=== PATIENT | male | born 1945 | race African-American/Black ===

== ENCOUNTER 2017-04-01 19:36 | Inpatient (IN) | payer MEDICARE, MEDICAID ==
[~2017-04-01] VITALS: Ht 190.5 cm; Wt 86.2 kg
[~2017-04-01 19:36] MED LIST: ATOR10TA69 PO; DILT180C69 PO; EYE15DRO EACHEYE; FURO-151 PO; GLIP10TA10 PO; NOVOLOG MIX 70/30 SQ; PREG150C PO
[2017-04-01 20:25] LABS: BASOPHILS % 0.7 % (0.0-2.0); EOSINOPHILS % 10.8 % (0.0-5.0); HEMOGLOBIN. 7.8 g/dL (14.0-18.0); LYMPHOCYTES % 15.5 % (20.0-50.0); MEAN CORPUSCULAR HEMOGLOBIN 18.8 pg (28.0-32.0); MEAN CORPUSCULAR VOLUME 62.7 fL (80.0-94.0); MONOCYTES % 7.5 % (2.0-8.0); NEUTROPHILS % 65.5 % (40.0-76.0); PLATELET 287 x1000/uL (130-400); RED BLOOD CELL COUNT 4.15 mill/uL (4.7-6.1); RED CELL DISTRIBUTION WIDTH 22.1 % (11.6-14.6)
[2017-04-01 20:31] LABS: INR 1.1; PARTIAL THROMBOPLASTIN TIME 29.4 sec (23.4-31.0); PROTHROMBIN TIME 11.1 sec (9.4-11.6)
[2017-04-01 20:39] LABS: CARBON DIOXIDE 26 mEq/L (21-32); CHLORIDE 103 mEq/L (98-107); PHOSPHORUS 2.2 mg/dL (2.5-4.9)
[2017-04-01 20:41] LABS: TROPONIN I 0.04 ng/mL (0.00-0.04)
[2017-04-01 20:43] LABS: PLATELET ESTIMATE NORMAL
[2017-04-01] MEDS ORDERED: MAGNESIUM 1 G PREMIX 100 ML IV ONE (20:45)
[2017-04-01] MEDS ORDERED: ZOLPIDEM TARTRATE 5MG TABLET PO PRN (21:00)
[2017-04-01 21:22] LABS: TOTAL IRON BINDING CAPACITY 345 ug/dL (250-450)
[2017-04-01] MEDS ORDERED: IPRATROPIUM/ALBUTEROL 0.5-3(2.5)MG/3ML NEB HHN PRN (23:45)
[2017-04-01] MEDS ORDERED: ONDANSETRON HCL 4MG/2ML VIAL IV PRN (23:45)
[2017-04-01] MEDS ORDERED: ACETAMINOPHEN 650MG/20.3ML UDC GT PRN (23:45)
[2017-04-01] MEDS ORDERED: DEXTROSE 50% WATER 50ML SYRINGE IV PRN (23:45)
[2017-04-02] VITALS (12 sets, daily range): BP systolic 134–169; BP diastolic 58–91
[2017-04-02] MEDS ORDERED: METF500T4 PO (01:32)
[2017-04-02] MEDS ORDERED: CLOP75TA16 PO (01:32)
[2017-04-02] MEDS ORDERED: DOCU250C69 PO (01:32)
[2017-04-02] MEDS ORDERED: DILT180C69 PO (01:32)
[2017-04-02] MEDS ORDERED: LIP40 PO (01:32)
[2017-04-02] MEDS ORDERED: INSU100I7 SQ (01:32)
[2017-04-02] MEDS ORDERED: CHOL100044 PO (01:32)
[2017-04-02] MEDS ORDERED: ASPI-1159 PO (01:32)
[2017-04-02] MEDS: CLONIDINE 0.1MG TABLET PO PRN ×2 (02:34→09:20)
[2017-04-02] MEDS: FERROUS SULFATE 325MG TABLET PO SCH ×3 (06:50→17:23)
[2017-04-02] MEDS: BLOOD SUGAR DIAGNOSTIC STRIP TEST SCH ×4 (06:50→20:28)
[2017-04-02] MEDS: OMEPRAZOLE 20MG CAPSULE EXTENDED RELEASE PO SCH (06:50)
[2017-04-02] MEDS: INSULIN LISPRO 100 UNITS/ML SUBCUT SCH ×4 (06:57→20:51)
[2017-04-02 07:43] LABS: BASOPHILS % 0.7 % (0.0-2.0); EOSINOPHILS % 13.1 % (0.0-5.0); HEMATOCRIT. 23.9 % (42.0-52.0); HEMOGLOBIN. 7.3 g/dL (14.0-18.0); LYMPHOCYTES % 18.3 % (20.0-50.0); MEAN CORPUSCULAR VOLUME 62.4 fL (80.0-94.0); MEAN PLATELET VOLUME 9.6 fl (7.4-10.4); MONOCYTES % 8.7 % (2.0-8.0); NEUTROPHILS % 59.2 % (40.0-76.0); PLATELET 247 x1000/uL (130-400); RED BLOOD CELL COUNT 3.82 mill/uL (4.7-6.1); RED CELL DISTRIBUTION WIDTH 21.9 % (11.6-14.6)
[2017-04-02 09:03] LABS: CARBON DIOXIDE 26 mEq/L (21-32); CHLORIDE 105 mEq/L (98-107)
[2017-04-02] MEDS: LOSARTAN POTASSIUM 25 MG TABLET PO SCH (10:46)
[2017-04-02] MEDS: DILTIAZEM HCL 180MG CAPSULE CD 24HR PO SCH (10:46)
[2017-04-02] MEDS: DOCUSATE SODIUM 250MG CAPSULE PO SCH (10:47)
[2017-04-02] MEDS: FUROSEMIDE 40MG TABLET PO SCH (10:47)
[2017-04-02] MEDS: CHOLECALCIFEROL (D3) 1000 UNIT TABLET PO SCH (10:47)
[2017-04-02] MEDS ORDERED: POTASSIUM-SODIUM PHOSPHATE POWDER PACKET PO NR (12:00)
[2017-04-02] MEDS ORDERED: MAGNESIUM 1 G PREMIX 100 ML IV NR (12:00)
[2017-04-02] MEDS ORDERED: FERROUS SULFATE 325MG TABLET PO SCH (12:40)
[2017-04-02 14:36] LABS: HEMATOCRIT 29.8 % (42.0-52.0); HEMOGLOBIN 9.1 g/dL (14.0-18.0)
[2017-04-02] MEDS ORDERED: MAGNESIUM 2 G PREMIX 50 ML IV SCH (15:00)
[2017-04-02] MEDS: METFORMIN HCL 500MG TABLET PO SCH (17:23)
[2017-04-02] MEDS: ATORVASTATIN CALCIUM 10MG TABLET PO SCH (20:28)
[2017-04-02] MEDS: PANTOPRAZOLE SODIUM 40 MG/VIAL IV SCH (20:28)
[2017-04-02] MEDS ORDERED: ATORVASTATIN CALCIUM 40MG TABLET PO SCH (21:00)
[2017-04-03] VITALS: BP 129/64
[2017-04-03 05:42] LABS: INR 1.1; PARTIAL THROMBOPLASTIN TIME 29.7 sec (23.4-31.0); PROTHROMBIN TIME 11.1 sec (9.4-11.6)
[2017-04-03 06:13] LABS: BASOPHILS % 0.5 % (0.0-2.0); EOSINOPHILS % 12.3 % (0.0-5.0); HEMATOCRIT. 29.8 % (42.0-52.0); HEMOGLOBIN. 9.1 g/dL (14.0-18.0); LYMPHOCYTES % 18.1 % (20.0-50.0); MEAN CORPUSCULAR HEMOGLOBIN 19.8 pg (28.0-32.0); MEAN CORPUSCULAR VOLUME 64.8 fL (80.0-94.0); MEAN PLATELET VOLUME 10.1 fl (7.4-10.4); MONOCYTES % 7.6 % (2.0-8.0); NEUTROPHILS % 61.5 % (40.0-76.0); PLATELET 248 x1000/uL (130-400); RED BLOOD CELL COUNT 4.61 mill/uL (4.7-6.1); RED CELL DISTRIBUTION WIDTH 23.4 % (11.6-14.6)
[2017-04-03 06:14] LABS: CARBON DIOXIDE 28 mEq/L (21-32); CHLORIDE 103 mEq/L (98-107); LDL CHOLESTEROL 82 mg/dL (5-100)
[2017-04-03 06:23] LABS: HDL CHOLESTEROL 33 mg/dL (40-59); TROPONIN I 0.05 ng/mL (0.00-0.04)
[2017-04-03] MEDS: BLOOD SUGAR DIAGNOSTIC STRIP TEST SCH ×4 (06:25→20:46)
[2017-04-03] MEDS: OMEPRAZOLE 20MG CAPSULE EXTENDED RELEASE PO SCH (06:26)
[2017-04-03] MEDS: GLIPIZIDE 10MG TABLET PO SCH (06:26)
[2017-04-03] MEDS: METFORMIN HCL 500MG TABLET PO SCH ×2 (06:26→17:20)
[2017-04-03] MEDS: FERROUS SULFATE 325MG TABLET PO SCH ×3 (06:27→17:20)
[2017-04-03] MEDS: INSULIN LISPRO 100 UNITS/ML SUBCUT SCH ×4 (06:27→23:09)
[2017-04-03 08:00] VITALS: BP 171/69
[2017-04-03] MEDS: DOCUSATE SODIUM 250MG CAPSULE PO SCH (08:41)
[2017-04-03] MEDS: PANTOPRAZOLE SODIUM 40 MG/VIAL IV SCH ×2 (08:41→20:46)
[2017-04-03] MEDS: FUROSEMIDE 40MG TABLET PO SCH (08:42)
[2017-04-03] MEDS: CHOLECALCIFEROL (D3) 1000 UNIT TABLET PO SCH (08:42)
[2017-04-03] MEDS: DILTIAZEM HCL 180MG CAPSULE CD 24HR PO SCH (08:51)
[2017-04-03] MEDS: LOSARTAN POTASSIUM 25 MG TABLET PO SCH (08:51)
[2017-04-03] MEDS: CLONIDINE 0.1MG TABLET PO PRN (08:51)
[2017-04-03] MEDS ORDERED: SIMETHICONE 40 MG/0.6 ML 30ML ONE (10:56)
[2017-04-03] MEDS ORDERED: SODIUM CHLORIDE 0.9% 10ML VIAL ONE (10:56)
[2017-04-03] MEDS ORDERED: HYDRALAZINE 20MG/ML VIAL IV PRN (11:15)
[2017-04-03 12:00] VITALS: BP 153/59
[2017-04-03] MEDS ORDERED: MIDAZOLAM HCL 5 MG/5 ML VIAL ONE (15:07)
[2017-04-03] MEDS ORDERED: FENTANYL CITRATE/PF 50MCG/ML 2ML VIAL ONE (15:07)
[2017-04-03 20:00] VITALS: BP 112/61
[2017-04-03] MEDS: ATORVASTATIN CALCIUM 10MG TABLET PO SCH (20:46)
[2017-04-04] VITALS: BP 125/58
[2017-04-04 04:00] VITALS: BP 119/67
[2017-04-04] MEDS: FERROUS SULFATE 325MG TABLET PO SCH ×2 (06:36→11:48)
[2017-04-04] MEDS: METFORMIN HCL 500MG TABLET PO SCH (06:36)
[2017-04-04] MEDS: OMEPRAZOLE 20MG CAPSULE EXTENDED RELEASE PO SCH (06:36)
[2017-04-04] MEDS: GLIPIZIDE 10MG TABLET PO SCH (06:36)
[2017-04-04] MEDS: BLOOD SUGAR DIAGNOSTIC STRIP TEST SCH ×2 (06:40→11:47)
[2017-04-04] MEDS: INSULIN LISPRO 100 UNITS/ML SUBCUT SCH ×2 (06:40→11:49)
[2017-04-04 07:18] LABS: BASOPHILS % 0.5 % (0.0-2.0); EOSINOPHILS % 10.6 % (0.0-5.0); HEMATOCRIT. 29.4 % (42.0-52.0); HEMOGLOBIN. 8.9 g/dL (14.0-18.0); LYMPHOCYTES % 16.8 % (20.0-50.0); MEAN CORPUSCULAR HEMOGLOBIN 19.8 pg (28.0-32.0); MEAN CORPUSCULAR VOLUME 65.6 fL (80.0-94.0); MEAN PLATELET VOLUME 9.4 fl (7.4-10.4); MONOCYTES % 7.8 % (2.0-8.0); NEUTROPHILS % 64.3 % (40.0-76.0); PLATELET 239 x1000/uL (130-400); RED BLOOD CELL COUNT 4.49 mill/uL (4.7-6.1); RED CELL DISTRIBUTION WIDTH 23.4 % (11.6-14.6)
[2017-04-04 08:00] VITALS: BP 181/66
[2017-04-04] MEDS: DOCUSATE SODIUM 250MG CAPSULE PO SCH (08:25)
[2017-04-04] MEDS: LOSARTAN POTASSIUM 25 MG TABLET PO SCH (08:25)
[2017-04-04] MEDS: DILTIAZEM HCL 180MG CAPSULE CD 24HR PO SCH (08:25)
[2017-04-04] MEDS: CHOLECALCIFEROL (D3) 1000 UNIT TABLET PO SCH (08:26)
[2017-04-04] MEDS: FUROSEMIDE 40MG TABLET PO SCH (08:26)
[2017-04-04] MEDS: PANTOPRAZOLE SODIUM 40 MG/VIAL IV SCH (08:28)
[2017-04-04 12:00] VITALS: BP 159/66
[2017-04-04 13:11] VITALS: BP 159/66
[2017-04-04 16:00] VITALS: BP 166/65
== END 2017-04-04 16:24 | DRG 392 ==
LOC: ER 20:31 → 8WST 21:00 → ENRESERV 23:02
PROVIDERS: ADMIT Family Medicine Adult Medicine; ATTEND Family Medicine Adult Medicine
PROC: 30233N1 Transfusion of Nonautologous Red Blood Cells into Peripheral Vein, Percutaneous Approach (ICD-10-PCS; 2017-04-02)
PROC: 0DB68ZX Excision of Stomach, Via Natural or Artificial Opening Endoscopic, Diagnostic (ICD-10-PCS; principal; 2017-04-03 15:00)
DX: K29.00 Acute gastritis without bleeding (principal); E44.0 Moderate protein-calorie malnutrition; I13.10 Hypertensive heart and chronic kidney disease without heart failure, with stage 1 through stage 4 chronic kidney disease, or unspecified chronic kidney disease; E11.22 Type 2 diabetes mellitus with diabetic chronic kidney disease; E83.42 Hypomagnesemia; D50.9 Iron deficiency anemia, unspecified; I65.21 Occlusion and stenosis of right carotid artery; N18.9 Chronic kidney disease, unspecified; E78.00 Pure hypercholesterolemia, unspecified; Z68.23 Body mass index [BMI] 23.0-23.9, adult; K44.9 Diaphragmatic hernia without obstruction or gangrene; E78.5 Hyperlipidemia, unspecified; K29.60 Other gastritis without bleeding; Z88.0 Allergy status to penicillin; Z88.8 Allergy status to other drugs, medicaments and biological substances; I25.2 Old myocardial infarction; Z79.82 Long term (current) use of aspirin; Z79.02 Long term (current) use of antithrombotics/antiplatelets; Z86.73 Personal history of transient ischemic attack (TIA), and cerebral infarction without residual deficits
CPT/HCPCS: 36415; 71010; 80048; 80053; 80061; 82962; 83540; 83550; 83735; 84100; 84443; 84484; 85014; 85018; 85025; 85044; 85610; 85730; 86850; 86900; 86920; 88305; 88313; 93005; 93970; 96365; 99285; A4216; C9113; J1815; J2250; J3010; J3475; J7040; J7050; P9016

== ENCOUNTER 2017-04-25 15:44 | Inpatient (IN) | payer MEDICARE, MEDICAID ==
[~2017-04-25] VITALS: Ht 190.5 cm; Wt 88.5 kg
[~2017-04-25 15:44] MED LIST changes: +ASPI-1159 PO; +CHOL100044 PO; +CLOP75TA16 PO; +DOCU250C69 PO; +INSU100I7 SQ; +LIP40 PO; +METF500T4 PO
[2017-04-25 17:41] LABS: BASOPHILS % 0.7 % (0.0-2.0); EOSINOPHILS % 11.4 % (0.0-5.0); HEMOGLOBIN. 7.7 g/dL (14.0-18.0); LYMPHOCYTES % 12.8 % (20.0-50.0); MEAN CORPUSCULAR HEMOGLOBIN 19.6 pg (28.0-32.0); MEAN CORPUSCULAR VOLUME 64.2 fL (80.0-94.0); NEUTROPHILS % 68.1 % (40.0-76.0); PLATELET 410 x1000/uL (130-400); RED CELL DISTRIBUTION WIDTH 21.6 % (11.6-14.6)
[2017-04-25 17:49] LABS: INR 1.1; PROTHROMBIN TIME 11.4 sec (9.4-11.6)
[2017-04-25 17:50] LABS: CARBON DIOXIDE 27 mEq/L (21-32); CHLORIDE 102 mEq/L (98-107)
[2017-04-25 18:03] LABS: PLATELET ESTIMATE SLIGHTLY INCREASED
[2017-04-25 19:10] LABS: CLARITY URINE CLEAR (CLEAR); COLOR URINE YELLOW (YELLOW); GLUCOSE URINE NEGATIVE (NEGATIVE); KETONES URINE NEGATIVE (NEGATIVE); LEUKOCYTE ESTERASE URINE NEGATIVE (NEGATIVE); NITRITE URINE NEGATIVE (NEGATIVE); OCCULT BLOOD URINE NEGATIVE (NEGATIVE); PROTEIN URINE NEGATIVE (NEGATIVE); SPECIFIC GRAVITY URINE 1.013 (1.005-1.030); UROBILINOGEN URINE 0.2 E.U./dL (0.2-1.0)
[2017-04-25 23:52] VITALS: BP 163/63
[2017-04-26] VITALS (10 sets, daily range): BP systolic 97–165; BP diastolic 51–82
[2017-04-26] MEDS ORDERED: LOSARTAN POTASSIUM 50 MG TABLET PO SCH (00:30)
[2017-04-26] MEDS ORDERED: DEXTROSE 50% WATER 50ML SYRINGE IV PRN (00:30)
[2017-04-26] MEDS ORDERED: ACETAMINOPHEN 325MG TABLET PO PRN (00:30)
[2017-04-26] MEDS ORDERED: SODIUM CHLORIDE 0.9% 250 ML IV ONE (00:30)
[2017-04-26] MEDS: POLYVINYL ALCOHOL OPHTH DROPS 15ML BOTHEYE SCH ×3 (05:42→17:34)
[2017-04-26] MEDS: BLOOD SUGAR DIAGNOSTIC STRIP TEST SCH ×4 (06:21→20:34)
[2017-04-26] MEDS: INSULIN LISPRO 100 UNITS/ML SUBCUT SCH ×4 (06:49→20:59)
[2017-04-26 07:04] LABS: BASOPHILS % 0.6 % (0.0-2.0); EOSINOPHILS % 9.7 % (0.0-5.0); HEMATOCRIT. 25.4 % (42.0-52.0); HEMOGLOBIN. 7.9 g/dL (14.0-18.0); LYMPHOCYTES % 14.6 % (20.0-50.0); MEAN CORPUSCULAR HEMOGLOBIN 20.1 pg (28.0-32.0); MEAN CORPUSCULAR VOLUME 65.1 fL (80.0-94.0); MEAN PLATELET VOLUME 9.9 fl (7.4-10.4); MONOCYTES % 8.8 % (2.0-8.0); NEUTROPHILS % 66.3 % (40.0-76.0); PLATELET 374 x1000/uL (130-400); RED BLOOD CELL COUNT 3.91 mill/uL (4.7-6.1); RED CELL DISTRIBUTION WIDTH 22.9 % (11.6-14.6)
[2017-04-26 08:03] LABS: CARBON DIOXIDE 29 mEq/L (21-32); CHLORIDE 102 mEq/L (98-107); TOTAL IRON BINDING CAPACITY 335 ug/dL (250-450)
[2017-04-26] MEDS: DILTIAZEM HCL 120MG CAPSULE CD 24HR PO SCH (08:41)
[2017-04-26] MEDS: LOSARTAN POTASSIUM 50 MG TABLET PO SCH (08:48)
[2017-04-26] MEDS: PREGABALIN 75MG CAPSULE PO SCH ×2 (08:48→17:00)
[2017-04-26] MEDS: ATORVASTATIN CALCIUM 10MG TABLET PO SCH (20:58)
[2017-04-26] MEDS ORDERED: SORBITOL 70% SOLN 30ML PO NR (21:00)
[2017-04-26] MEDS ORDERED: ATORVASTATIN CALCIUM 10MG TABLET PO SCH (21:00)
[2017-04-27] VITALS: BP 105/59
[2017-04-27 04:00] VITALS: BP 125/78
[2017-04-27] MEDS: BLOOD SUGAR DIAGNOSTIC STRIP TEST SCH ×4 (05:55→21:00)
[2017-04-27] MEDS ORDERED: SORBITOL 70% SOLN 30ML PO NR ×2 (06:00→10:00)
[2017-04-27] MEDS: POLYVINYL ALCOHOL OPHTH DROPS 15ML BOTHEYE SCH ×5 (06:28→23:39)
[2017-04-27] MEDS: INSULIN LISPRO 100 UNITS/ML SUBCUT SCH ×4 (07:13→22:07)
[2017-04-27 08:00] VITALS: BP 105/57
[2017-04-27] MEDS ORDERED: NA PHOS,M-B/NA PHOS,DI-BA ENEMA 118ML PR ONE (08:00)
[2017-04-27] MEDS ORDERED: NA PHOS,M-B/NA PHOS,DI-BA ENEMA 118ML PR NR ×2 (08:00→11:00)
[2017-04-27] MEDS: PREGABALIN 75MG CAPSULE PO SCH ×2 (08:14→16:45)
[2017-04-27] MEDS: DILTIAZEM HCL 120MG CAPSULE CD 24HR PO SCH (08:17)
[2017-04-27] MEDS: LOSARTAN POTASSIUM 50 MG TABLET PO SCH (08:18)
[2017-04-27] MEDS ORDERED: SODIUM CHLORIDE 0.9% 10ML VIAL ONE (09:46)
[2017-04-27] MEDS ORDERED: SIMETHICONE 40 MG/0.6 ML 30ML ONE (09:46)
[2017-04-27] MEDS ORDERED: MIDAZOLAM HCL 5 MG/5 ML VIAL ONE (09:55)
[2017-04-27] MEDS ORDERED: FENTANYL CITRATE/PF 50MCG/ML 2ML VIAL ONE (09:55)
[2017-04-27 12:00] VITALS: BP 113/74
[2017-04-27 16:00] VITALS: BP 116/67
[2017-04-27 20:00] VITALS: BP 121/68
[2017-04-27] MEDS: ATORVASTATIN CALCIUM 10MG TABLET PO SCH (20:32)
[2017-04-27] MEDS ORDERED: SORBITOL 70% SOLN 30ML PO SCH (21:00)
[2017-04-27] MEDS: INSULIN DETEMIR UD 100 UNITS/ML SYR SUBCUT SCH (22:08)
[2017-04-28] VITALS: BP 122/65
[2017-04-28 04:00] VITALS: BP 113/60
[2017-04-28] MEDS: POLYVINYL ALCOHOL OPHTH DROPS 15ML BOTHEYE SCH ×3 (06:25→18:43)
[2017-04-28] MEDS: BLOOD SUGAR DIAGNOSTIC STRIP TEST SCH ×4 (06:29→21:00)
[2017-04-28] MEDS: INSULIN LISPRO 100 UNITS/ML SUBCUT SCH ×4 (06:49→21:59)
[2017-04-28 07:03] LABS: HEMATOCRIT. 26.2 % (42.0-52.0); HEMOGLOBIN. 7.8 g/dL (14.0-18.0); MEAN CORPUSCULAR HEMOGLOBIN 19.3 pg (28.0-32.0); MEAN PLATELET VOLUME 9.2 fl (7.4-10.4); PLATELET 321 x1000/uL (130-400); RED BLOOD CELL COUNT 4.03 mill/uL (4.7-6.1); RED CELL DISTRIBUTION WIDTH 23.1 % (11.6-14.6)
[2017-04-28 07:27] LABS: CARBON DIOXIDE 24 mEq/L (21-32); CHLORIDE 108 mEq/L (98-107)
[2017-04-28 08:00] VITALS: BP 117/68
[2017-04-28] MEDS ORDERED: SORBITOL 70% SOLN 30ML PO SCH (08:00)
[2017-04-28] MEDS: LOSARTAN POTASSIUM 50 MG TABLET PO SCH (09:00)
[2017-04-28] MEDS: PREGABALIN 75MG CAPSULE PO SCH ×2 (09:00→18:43)
[2017-04-28] MEDS: DILTIAZEM HCL 120MG CAPSULE CD 24HR PO SCH (09:00)
[2017-04-28] MEDS: METOPROLOL TARTRATE 50MG TABLET PO SCH ×2 (11:00→21:00)
[2017-04-28] MEDS ORDERED: NA PHOS,M-B/NA PHOS,DI-BA ENEMA 118ML PR SCH (11:00)
[2017-04-28 11:38] LABS: NUCLEATED RED BLOOD CELLS 1 /100 WBC; PLATELET ESTIMATE NORMAL
[2017-04-28 12:00] VITALS: BP 106/56
[2017-04-28] MEDS ORDERED: SIMETHICONE 40 MG/0.6 ML 30ML ONE ×2 (14:32→16:05)
[2017-04-28] MEDS ORDERED: SODIUM CHLORIDE 0.9% 10ML VIAL ONE (14:32)
[2017-04-28] MEDS ORDERED: FENTANYL CITRATE/PF 50MCG/ML 2ML VIAL ONE (16:06)
[2017-04-28] MEDS ORDERED: MIDAZOLAM HCL 5 MG/5 ML VIAL ONE (16:06)
[2017-04-28] MEDS ORDERED: MIDAZOLAM HCL 2 MG/2 ML VIAL IV PRN (16:27)
[2017-04-28 20:00] VITALS: BP 105/63
[2017-04-28] MEDS: ATORVASTATIN CALCIUM 10MG TABLET PO SCH (21:49)
[2017-04-28] MEDS: INSULIN DETEMIR UD 100 UNITS/ML SYR SUBCUT SCH (21:59)
[2017-04-29] VITALS: BP 131/67
[2017-04-29] MEDS: POLYVINYL ALCOHOL OPHTH DROPS 15ML BOTHEYE SCH ×5 (00:35→23:52)
[2017-04-29 04:00] VITALS: BP_SYST 123; BP_SYST 131; BP_DIAS 61; BP_DIAS 67
[2017-04-29] MEDS: BLOOD SUGAR DIAGNOSTIC STRIP TEST SCH ×4 (06:24→21:00)
[2017-04-29] MEDS: INSULIN LISPRO 100 UNITS/ML SUBCUT SCH ×4 (06:31→22:23)
[2017-04-29 07:17] LABS: HEMATOCRIT. 25.6 % (42.0-52.0); HEMOGLOBIN. 7.8 g/dL (14.0-18.0); MEAN CORPUSCULAR HEMOGLOBIN 19.8 pg (28.0-32.0); MEAN PLATELET VOLUME 9.3 fl (7.4-10.4); PLATELET 265 x1000/uL (130-400); RED BLOOD CELL COUNT 3.94 mill/uL (4.7-6.1); RED CELL DISTRIBUTION WIDTH 23.2 % (11.6-14.6)
[2017-04-29 07:52] LABS: CARBON DIOXIDE 25 mEq/L (21-32); CHLORIDE 107 mEq/L (98-107)
[2017-04-29 08:00] VITALS: BP 131/63
[2017-04-29] MEDS: LOSARTAN POTASSIUM 50 MG TABLET PO SCH (09:10)
[2017-04-29] MEDS: METOPROLOL TARTRATE 50MG TABLET PO SCH ×2 (09:11→21:00)
[2017-04-29] MEDS: PREGABALIN 75MG CAPSULE PO SCH ×2 (09:11→17:01)
[2017-04-29] MEDS ORDERED: INSULIN DETEMIR UD 100 UNITS/ML SYR SUBCUT SCH (10:00)
[2017-04-29 11:40] VITALS: BP 127/65
[2017-04-29 15:47] VITALS: BP 134/48
[2017-04-29 16:19] LABS: PLATELET ESTIMATE NORMAL
[2017-04-29 20:00] VITALS: BP 107/56
[2017-04-29] MEDS: ATORVASTATIN CALCIUM 10MG TABLET PO SCH (21:12)
[2017-04-29] MEDS: INSULIN DETEMIR UD 100 UNITS/ML SYR SUBCUT SCH (22:24)
[2017-04-30] VITALS (11 sets, daily range): BP systolic 93–125; BP diastolic 52–63
[2017-04-30] MEDS: POLYVINYL ALCOHOL OPHTH DROPS 15ML BOTHEYE SCH ×4 (05:54→23:18)
[2017-04-30] MEDS: BLOOD SUGAR DIAGNOSTIC STRIP TEST SCH ×4 (06:16→20:10)
[2017-04-30 06:33] LABS: BASOPHILS % 0.7 % (0.0-2.0); EOSINOPHILS % 13.4 % (0.0-5.0); HEMATOCRIT. 24.4 % (42.0-52.0); HEMOGLOBIN. 7.5 g/dL (14.0-18.0); LYMPHOCYTES % 17.1 % (20.0-50.0); MEAN CORPUSCULAR HEMOGLOBIN 19.8 pg (28.0-32.0); MEAN CORPUSCULAR VOLUME 64.7 fL (80.0-94.0); MEAN PLATELET VOLUME 9.2 fl (7.4-10.4); MONOCYTES % 8.4 % (2.0-8.0); NEUTROPHILS % 60.4 % (40.0-76.0); PLATELET 254 x1000/uL (130-400); RED BLOOD CELL COUNT 3.76 mill/uL (4.7-6.1); RED CELL DISTRIBUTION WIDTH 22.7 % (11.6-14.6)
[2017-04-30] MEDS: INSULIN LISPRO 100 UNITS/ML SUBCUT SCH ×7 (06:41→21:08)
[2017-04-30] MEDS: LOSARTAN POTASSIUM 50 MG TABLET PO SCH (09:34)
[2017-04-30] MEDS: METOPROLOL TARTRATE 50MG TABLET PO SCH ×2 (09:34→20:11)
[2017-04-30] MEDS: PREGABALIN 75MG CAPSULE PO SCH ×2 (09:34→17:17)
[2017-04-30] MEDS: INSULIN DETEMIR UD 100 UNITS/ML SYR SUBCUT SCH (09:46)
[2017-04-30] MEDS: ATORVASTATIN CALCIUM 10MG TABLET PO SCH (21:03)
[2017-04-30] MEDS ORDERED: INSULIN DETEMIR UD 100 UNITS/ML SYR SUBCUT SCH (22:00)
[2017-04-30 23:07] LABS: HEMATOCRIT 27.4 % (42.0-52.0); HEMOGLOBIN 8.7 g/dL (14.0-18.0)
[2017-05-01] VITALS: BP 109/63
[2017-05-01 04:00] VITALS: BP 121/67
[2017-05-01] MEDS: BLOOD SUGAR DIAGNOSTIC STRIP TEST SCH ×2 (06:21→12:22)
[2017-05-01] MEDS: POLYVINYL ALCOHOL OPHTH DROPS 15ML BOTHEYE SCH ×2 (06:43→12:34)
[2017-05-01] MEDS: INSULIN LISPRO 100 UNITS/ML SUBCUT SCH ×4 (06:46→12:34)
[2017-05-01 07:31] VITALS: BP 124/67
[2017-05-01] MEDS: PREGABALIN 75MG CAPSULE PO SCH (08:31)
[2017-05-01] MEDS: LOSARTAN POTASSIUM 50 MG TABLET PO SCH (08:31)
[2017-05-01] MEDS: METOPROLOL TARTRATE 50MG TABLET PO SCH (08:31)
[2017-05-01 08:50] LABS: BASOPHILS % 0.9 % (0.0-2.0); EOSINOPHILS % 10.7 % (0.0-5.0); HEMATOCRIT. 31.6 % (42.0-52.0); HEMOGLOBIN. 9.8 g/dL (14.0-18.0); LYMPHOCYTES % 21.2 % (20.0-50.0); MEAN CORPUSCULAR HEMOGLOBIN 20.5 pg (28.0-32.0); MEAN CORPUSCULAR VOLUME 66.3 fL (80.0-94.0); MEAN PLATELET VOLUME 9.1 fl (7.4-10.4); MONOCYTES % 7.5 % (2.0-8.0); NEUTROPHILS % 59.7 % (40.0-76.0); PLATELET 268 x1000/uL (130-400); RED BLOOD CELL COUNT 4.76 mill/uL (4.7-6.1); RED CELL DISTRIBUTION WIDTH 23.6 % (11.6-14.6)
[2017-05-01 09:10] LABS: CARBON DIOXIDE 25 mEq/L (21-32); CHLORIDE 108 mEq/L (98-107)
[2017-05-01] MEDS: INSULIN DETEMIR UD 100 UNITS/ML SYR SUBCUT SCH (10:08)
[2017-05-01 10:12] LABS: IMMUNOGLOBULIN A 214 mg/dL (61-437); IMMUNOGLOBULIN G 1103 mg/dL (700-1600); IMMUNOGLOBULIN M 103 mg/dL (15-143)
[2017-05-01] MEDS ORDERED: CLOPIDOGREL 75MG TABLET PO SCH (11:00)
[2017-05-01] MEDS ORDERED: ASPIRIN 81MG EC TABLET PO SCH (11:00)
[2017-05-01 11:53] VITALS: BP 124/58
[2017-05-01 12:13] VITALS: BP 124/58
[2017-05-02] MEDS ORDERED: INSULIN DETEMIR UD 100 UNITS/ML SYR SUBCUT SCH (10:00)
== END 2017-05-01 13:15 | DRG 377 ==
LOC: ER 15:54 → 8WST 18:44 → ENRESERV 21:11 → 8WST 04-26 00:27
PROVIDERS: ADMIT Specialist; ATTEND Specialist
PROC: 0DJD8ZZ Inspection of Lower Intestinal Tract, Via Natural or Artificial Opening Endoscopic (ICD-10-PCS; principal; 2017-04-27 11:00)
PROC: 0DJD8ZZ Inspection of Lower Intestinal Tract, Via Natural or Artificial Opening Endoscopic (ICD-10-PCS; 2017-04-28)
DX: K57.31 Diverticulosis of large intestine without perforation or abscess with bleeding (principal); N17.0 Acute kidney failure with tubular necrosis; R65.10 Systemic inflammatory response syndrome (SIRS) of non-infectious origin without acute organ dysfunction; E11.22 Type 2 diabetes mellitus with diabetic chronic kidney disease; E11.40 Type 2 diabetes mellitus with diabetic neuropathy, unspecified; I12.9 Hypertensive chronic kidney disease with stage 1 through stage 4 chronic kidney disease, or unspecified chronic kidney disease; N18.9 Chronic kidney disease, unspecified; D50.9 Iron deficiency anemia, unspecified; I25.10 Atherosclerotic heart disease of native coronary artery without angina pectoris; K64.8 Other hemorrhoids; D72.829 Elevated white blood cell count, unspecified; E78.5 Hyperlipidemia, unspecified; Z86.73 Personal history of transient ischemic attack (TIA), and cerebral infarction without residual deficits
CPT/HCPCS: 36415; 71010; 80048; 80053; 81003; 82270; 82784; 82962; 83010; 83540; 83550; 83615; 83735; 84443; 85014; 85018; 85025; 85610; 86334; 86850; 86880; 86900; 86920; 93005; 93970; 97112; 97162; 99285; A4216; J1815; J2250; J3010; J7030; J7050; P9016

== ENCOUNTER 2018-02-08 23:25 | Inpatient (IN) | payer MEDICARE, MEDICAID ==
[~2018-02-08] VITALS: Ht 188 cm; Wt 88.9 kg
[~2018-02-08 23:25] MED LIST changes: -METF500T4 PO; +METF500T6 PO
[2018-02-08] MEDS ORDERED: NITROGLYCERIN 50MG PREMIX 250 ML IV ONE ×2 (23:36→23:37)
[2018-02-08] MEDS ORDERED: FUROSEMIDE 40MG/4ML VIAL IV ONE (23:45)
[2018-02-08 23:48] LABS: BASOPHILS % 1.1 % (0.0-2.0); EOSINOPHILS % 12.4 % (0.0-5.0); HEMATOCRIT. 37.6 % (42.0-52.0); LYMPHOCYTES % 33.7 % (20.0-50.0); MEAN CORPUSCULAR HEMOGLOBIN 18.6 pg (28.0-32.0); MEAN CORPUSCULAR VOLUME 63.8 fL (80.0-94.0); MEAN PLATELET VOLUME 9.8 fl (7.4-10.4); MONOCYTES % 8.7 % (2.0-8.0); NEUTROPHILS % 44.1 % (40.0-76.0); PLATELET 403 x1000/uL (130-400); RED CELL DISTRIBUTION WIDTH 22.2 % (11.6-14.6)
[2018-02-08 23:55] LABS: CHLORIDE 103 mEq/L (98-107)
[2018-02-08 23:58] LABS: INR 1.1; PARTIAL THROMBOPLASTIN TIME 27.1 sec (23.4-31.0)
[2018-02-09] VITALS (10 sets, daily range): BP systolic 105–140; BP diastolic 47–75
[2018-02-09] MEDS ORDERED: ASPIRIN 325MG TABLET PO NR (00:15)
[2018-02-09 00:29] LABS: CLARITY URINE CLEAR (CLEAR); COLOR URINE YELLOW (YELLOW); KETONES URINE NEGATIVE (NEGATIVE); LEUKOCYTE ESTERASE URINE NEGATIVE (NEGATIVE); NITRITE URINE NEGATIVE (NEGATIVE); OCCULT BLOOD URINE 1+ (NEGATIVE); PROTEIN URINE 3+ (NEGATIVE); SPECIFIC GRAVITY URINE 1.019 (1.005-1.030); UROBILINOGEN URINE 0.2 E.U./dL (0.2-1.0)
[2018-02-09 02:07] LABS: PLATELET ESTIMATE NORMAL
[2018-02-09] MEDS ORDERED: DILT60TA35 PO (04:49)
[2018-02-09] MEDS ORDERED: INSLIS SUBCUT (04:49)
[2018-02-09] MEDS ORDERED: PANT20TA3 PO (04:49)
[2018-02-09] MEDS ORDERED: POTA-9 PO (04:49)
[2018-02-09] MEDS ORDERED: CARV3.1242 PO (04:49)
[2018-02-09] MEDS ORDERED: FURO20TA4 PO (04:49)
[2018-02-09] MEDS ORDERED: INSU100I19 SQ (04:49)
[2018-02-09] MEDS ORDERED: BUDE0.25 IH (04:49)
[2018-02-09] MEDS ORDERED: LEVVL SQ (04:49)
[2018-02-09] MEDS ORDERED: IPRATROPIUM/ALBUTEROL 0.5-3(2.5)MG/3ML NEB HHN PRN (05:30)
[2018-02-09] MEDS ORDERED: CLONIDINE 0.1MG TABLET PO PRN (05:30)
[2018-02-09] MEDS ORDERED: DEXTROSE 50% WATER 50ML SYRINGE IV PRN (05:30)
[2018-02-09] MEDS ORDERED: ONDANSETRON 4MG ODT PO PRN (05:30)
[2018-02-09] MEDS ORDERED: INSULIN LISPRO 100 UNITS/ML SUBCUT NR (05:45)
[2018-02-09] MEDS: INSULIN LISPRO 100 UNITS/ML SUBCUT SCH ×4 (07:20→21:16)
[2018-02-09] MEDS: BLOOD SUGAR DIAGNOSTIC STRIP TEST SCH ×4 (07:39→20:51)
[2018-02-09 07:51] LABS: CHLORIDE 102 mEq/L (98-107)
[2018-02-09 08:04] LABS: BASOPHILS % 0.6 % (0.0-2.0); EOSINOPHILS % 5.6 % (0.0-5.0); HEMATOCRIT. 31.5 % (42.0-52.0); HEMOGLOBIN. 9.5 g/dL (14.0-18.0); LYMPHOCYTES % 15.5 % (20.0-50.0); MEAN CORPUSCULAR VOLUME 62.8 fL (80.0-94.0); MONOCYTES % 8.1 % (2.0-8.0); NEUTROPHILS % 70.2 % (40.0-76.0); RED BLOOD CELL COUNT 5.02 mill/uL (4.7-6.1); RED CELL DISTRIBUTION WIDTH 21.3 % (11.6-14.6)
[2018-02-09] MEDS ORDERED: LEVOFLOXACIN 500MG PREMIX 100 ML IV SCH (09:00)
[2018-02-09 09:04] LABS: MEAN PLATELET VOLUME 10.1 fl (7.4-10.4); PLATELET 227 x1000/uL (130-400)
[2018-02-09 10:07] LABS: BG BASE EXCESS 4.1 mmol/L (-2.0-2.0); BG CARBOXYHEMOGLOBIN 0.3 % (0.5-1.5); BG DEOXYHEMOGLOBIN 4.4 % (0.0-5.0); BG FRACTION INSPIRED OXYGEN 28; BG HCO3 ACT 28.1 mmol/L (22.0-26.0); BG METHEMOGLOBIN 0.4 % (0.0-1.5); BG OXYGEN SATURATION 95.6 % (92.0-98.5); BG OXYHEMOGLOBIN 94.9 % (94.0-97.0); BG PCO2 40.1 mmHg (35.0-45.0); BG PH 7.464 (7.350-7.450); BG PO2 80.4 mmHg (75.0-100.0); BG SAMPLE SITE RIGHT BRACHIAL; BG TOTAL HEMOGLOBIN 10.5 g/dL (12.0-18.0); BG VENT MODE NASAL CANNULA
[2018-02-09] MEDS ORDERED: FUROSEMIDE 40MG/4ML VIAL IVP SCH (10:30)
[2018-02-09] MEDS ORDERED: ONDANSETRON HCL 4MG/2ML VIAL IV PRN (10:30)
[2018-02-09] MEDS: LEVOFLOXACIN 500MG PREMIX 100 ML IV SCH (11:30)
[2018-02-09] MEDS: PANTOPRAZOLE SODIUM 40 MG/VIAL IV SCH (11:30)
[2018-02-09] MEDS: LOSARTAN POTASSIUM 25 MG TABLET PO SCH (14:00)
[2018-02-09] MEDS: INSULIN GLARGINE UD 100 UNITS/ML SYR SUBCUT SCH (14:03)
[2018-02-09 15:15] LABS: HEMATOCRIT 29.8 % (42.0-52.0); HEMOGLOBIN 9.1 g/dL (14.0-18.0)
[2018-02-09] MEDS: FUROSEMIDE 40MG/4ML VIAL IVP SCH (17:08)
[2018-02-09 17:16] LABS: AMMONIA 35 uMol/L (<32)
[2018-02-09 17:18] LABS: ETHANOL BLOOD < 10 mg/dL
[2018-02-09 17:24] LABS: T4 FREE 1.02 ng/dL (0.76-1.46)
[2018-02-09 17:32] LABS: FOLIC ACID (FOLATE) SERUM 17.7 ng/mL (>5.38)
[2018-02-09] MEDS: ATORVASTATIN CALCIUM 20MG TABLET PO SCH (21:15)
[2018-02-09] MEDS: CARVEDILOL 3.125 MG TABLET PO SCH (21:15)
[2018-02-09] MEDS: IPRATROPIUM/ALBUTEROL 0.5-3(2.5)MG/3ML NEB HHN SCH (21:25)
[2018-02-10] VITALS (12 sets, daily range): BP systolic 97–145; BP diastolic 46–88
[2018-02-10] MEDS: IPRATROPIUM/ALBUTEROL 0.5-3(2.5)MG/3ML NEB HHN SCH ×4 (02:05→19:57)
[2018-02-10 03:44] LABS: *AMPHETAMINES SCREEN URINE NEGATIVE (NEGATIVE); *BARBITURATES SCREEN URINE NEGATIVE (NEGATIVE); *BENZODIAZEPINES SCREEN URINE NEGATIVE (NEGATIVE); *COCAINE SCREEN URINE NEGATIVE (NEGATIVE); CANNABINOID URINE SCREEN NEGATIVE (NEGATIVE); METHADONE URINE SCREEN NEGATIVE (NEGATIVE); OPIATES URINE SCREEN NEGATIVE (NEGATIVE); PHENCYCLIDINE URINE SCREEN NEGATIVE (NEGATIVE)
[2018-02-10] MEDS: BLOOD SUGAR DIAGNOSTIC STRIP TEST SCH ×4 (06:27→22:29)
[2018-02-10] MEDS: LOSARTAN POTASSIUM 25 MG TABLET PO SCH (09:04)
[2018-02-10] MEDS: INSULIN LISPRO 100 UNITS/ML SUBCUT SCH ×4 (09:04→22:51)
[2018-02-10] MEDS: PANTOPRAZOLE SODIUM 40 MG/VIAL IV SCH (09:04)
[2018-02-10] MEDS: CARVEDILOL 3.125 MG TABLET PO SCH ×2 (09:04→22:45)
[2018-02-10] MEDS: LEVOFLOXACIN 500MG PREMIX 100 ML IV SCH (09:05)
[2018-02-10] MEDS: ASPIRIN 81MG TABLET PO SCH (09:05)
[2018-02-10] MEDS: INSULIN GLARGINE UD 100 UNITS/ML SYR SUBCUT SCH (10:07)
[2018-02-10 10:39] LABS: BASOPHILS % 0.5 % (0.0-2.0); EOSINOPHILS % 7.3 % (0.0-5.0); HEMATOCRIT. 29.7 % (42.0-52.0); HEMOGLOBIN. 9.2 g/dL (14.0-18.0); LYMPHOCYTES % 13.8 % (20.0-50.0); MEAN CORPUSCULAR HEMOGLOBIN 19.3 pg (28.0-32.0); MONOCYTES % 7.7 % (2.0-8.0); NEUTROPHILS % 70.7 % (40.0-76.0); RED CELL DISTRIBUTION WIDTH 21.4 % (11.6-14.6)
[2018-02-10 10:43] LABS: CHLORIDE 103 mEq/L (98-107)
[2018-02-10 10:49] LABS: TOTAL IRON BINDING CAPACITY 309 ug/dL (250-450)
[2018-02-10] MEDS: POTASSIUM CHLORIDE 20MEQ TABLET SR PO SCH (11:23)
[2018-02-10] MEDS: FUROSEMIDE 40MG/4ML VIAL IVP SCH ×3 (11:23→18:17)
[2018-02-10 11:43] LABS: PLATELET 207 x1000/uL (130-400)
[2018-02-10] MEDS ORDERED: MAGNESIUM 2 G PREMIX 50 ML IV NR (13:00)
[2018-02-10] MEDS: DOCUSATE SODIUM 100MG CAPSULE PO SCH (18:17)
[2018-02-10] MEDS: FERROUS SULFATE 325MG TABLET PO SCH (18:17)
[2018-02-10] MEDS: ATORVASTATIN CALCIUM 20MG TABLET PO SCH (22:45)
[2018-02-11] VITALS (13 sets, daily range): BP systolic 81–143; BP diastolic 53–90
[2018-02-11] MEDS: IPRATROPIUM/ALBUTEROL 0.5-3(2.5)MG/3ML NEB HHN SCH ×3 (01:10→20:45)
[2018-02-11] MEDS: BLOOD SUGAR DIAGNOSTIC STRIP TEST SCH ×4 (06:34→21:00)
[2018-02-11] MEDS: FUROSEMIDE 40MG/4ML VIAL IVP SCH ×2 (06:36→16:49)
[2018-02-11] MEDS: INSULIN LISPRO 100 UNITS/ML SUBCUT SCH ×4 (07:20→22:56)
[2018-02-11] MEDS: POTASSIUM CHLORIDE 20MEQ TABLET SR PO SCH (08:26)
[2018-02-11] MEDS: DOCUSATE SODIUM 100MG CAPSULE PO SCH ×2 (08:26→16:49)
[2018-02-11] MEDS: PANTOPRAZOLE SODIUM 40 MG/VIAL IV SCH (08:27)
[2018-02-11] MEDS: FERROUS SULFATE 325MG TABLET PO SCH ×3 (08:27→16:50)
[2018-02-11] MEDS: LEVOFLOXACIN 500MG PREMIX 100 ML IV SCH (08:27)
[2018-02-11] MEDS: ASPIRIN 81MG TABLET PO SCH (08:27)
[2018-02-11] MEDS: LOSARTAN POTASSIUM 25 MG TABLET PO SCH (08:30)
[2018-02-11] MEDS: CARVEDILOL 3.125 MG TABLET PO SCH ×2 (09:00→21:39)
[2018-02-11] MEDS: INSULIN GLARGINE UD 100 UNITS/ML SYR SUBCUT SCH (10:37)
[2018-02-11 12:24] LABS: BASOPHILS % 0.6 % (0.0-2.0); HEMATOCRIT. 31.3 % (42.0-52.0); HEMOGLOBIN. 9.5 g/dL (14.0-18.0); LYMPHOCYTES % 14.9 % (20.0-50.0); MEAN CORPUSCULAR HEMOGLOBIN 19.1 pg (28.0-32.0); MEAN CORPUSCULAR VOLUME 62.5 fL (80.0-94.0); MONOCYTES % 7.7 % (2.0-8.0); NEUTROPHILS % 67.8 % (40.0-76.0); RED BLOOD CELL COUNT 5.01 mill/uL (4.7-6.1); RED CELL DISTRIBUTION WIDTH 21.6 % (11.6-14.6)
[2018-02-11 13:19] LABS: PLATELET 236 x1000/uL (130-400)
[2018-02-11] MEDS: ATORVASTATIN CALCIUM 20MG TABLET PO SCH (21:39)
[2018-02-12] VITALS (8 sets, daily range): BP systolic 105–160; BP diastolic 54–81
[2018-02-12] MEDS: IPRATROPIUM/ALBUTEROL 0.5-3(2.5)MG/3ML NEB HHN SCH ×3 (01:00→13:44)
[2018-02-12] MEDS: FERROUS SULFATE 325MG TABLET PO SCH ×2 (06:11→12:31)
[2018-02-12] MEDS: FUROSEMIDE 40MG/4ML VIAL IVP SCH (06:11)
[2018-02-12] MEDS: BLOOD SUGAR DIAGNOSTIC STRIP TEST SCH ×2 (06:25→11:41)
[2018-02-12] MEDS: INSULIN LISPRO 100 UNITS/ML SUBCUT SCH ×2 (06:32→12:32)
[2018-02-12 07:46] LABS: BASOPHILS % 0.6 % (0.0-2.0); EOSINOPHILS % 11.6 % (0.0-5.0); HEMATOCRIT. 34.1 % (42.0-52.0); HEMOGLOBIN. 10.7 g/dL (14.0-18.0); LYMPHOCYTES % 14.8 % (20.0-50.0); MEAN CORPUSCULAR HEMOGLOBIN 19.6 pg (28.0-32.0); MEAN CORPUSCULAR VOLUME 62.5 fL (80.0-94.0); MONOCYTES % 8.8 % (2.0-8.0); NEUTROPHILS % 64.2 % (40.0-76.0); RED BLOOD CELL COUNT 5.46 mill/uL (4.7-6.1); RED CELL DISTRIBUTION WIDTH 21.2 % (11.6-14.6)
[2018-02-12 08:26] LABS: MEAN PLATELET VOLUME 9.3 fl (7.4-10.4); PLATELET 259 x1000/uL (130-400)
[2018-02-12] MEDS: ASPIRIN 81MG TABLET PO SCH (08:29)
[2018-02-12] MEDS: DOCUSATE SODIUM 100MG CAPSULE PO SCH (08:29)
[2018-02-12] MEDS: POTASSIUM CHLORIDE 20MEQ TABLET SR PO SCH (08:29)
[2018-02-12] MEDS: CARVEDILOL 3.125 MG TABLET PO SCH (08:29)
[2018-02-12] MEDS: LOSARTAN POTASSIUM 25 MG TABLET PO SCH (08:29)
[2018-02-12] MEDS ORDERED: FAMOTIDINE 20MG TABLET PO SCH (09:00)
[2018-02-12] MEDS ORDERED: FUROSEMIDE 40MG TABLET PO SCH (09:00)
[2018-02-12] MEDS ORDERED: LEVOFLOXACIN 500MG TABLET PO SCH (11:00)
[2018-02-12] MEDS: INSULIN GLARGINE UD 100 UNITS/ML SYR SUBCUT SCH (11:38)
[2018-02-13 13:09] LABS: ALBUMIN 3.1 g/dL (2.9-4.4); ALPHA-1-GLOBULIN 0.3 g/dL (0.0-0.4); ALPHA-2-GLOBULIN 0.6 g/dL (0.4-1.0); BETA GLOBULIN 1.1 g/dL (0.7-1.3); GAMMA GLOBULINS 1.1 g/dL (0.4-1.8); GLOBULIN TOTAL 3.1 g/dL (2.2-3.9); M-SPIKE Not Observed g/dL (Not Observed); TOTAL PROTEIN SERUM 6.2 g/dL (6.0-8.5)
[2018-02-13 17:09] LABS: ANTI-NUCLEAR ANTIBODIES DIRECT Negative (Negative)
== END 2018-02-12 13:56 | DRG 291 ==
LOC: ER 23:33 → 3WST 02-09 00:10 → EDBEDREQ 02-09 00:15 → EDBEDREQTM 02-09 00:15 → EDBEDREQDT 02-09 00:15 → EDBEDREQSVC 02-09 00:16 → ENRESERV 02-09 02:16
PROVIDERS: ADMIT Family Medicine Adult Medicine; ATTEND Family Medicine Adult Medicine
PROC: 5A09357 Assistance with Respiratory Ventilation, Less than 24 Consecutive Hours, Continuous Positive Airway Pressure (ICD-10-PCS; 2018-02-09)
PROC: 4A00X4Z Measurement of Central Nervous Electrical Activity, External Approach (ICD-10-PCS; principal; 2018-02-11)
DX: I13.0 Hypertensive heart and chronic kidney disease with heart failure and stage 1 through stage 4 chronic kidney disease, or unspecified chronic kidney disease (principal); I50.23 Acute on chronic systolic (congestive) heart failure; J96.00 Acute respiratory failure, unspecified whether with hypoxia or hypercapnia; G92 Toxic encephalopathy; E87.2 Acidosis; E44.1 Mild protein-calorie malnutrition; N17.9 Acute kidney failure, unspecified; I42.9 Cardiomyopathy, unspecified; E11.65 Type 2 diabetes mellitus with hyperglycemia; D72.829 Elevated white blood cell count, unspecified; E11.22 Type 2 diabetes mellitus with diabetic chronic kidney disease; E78.00 Pure hypercholesterolemia, unspecified; E78.5 Hyperlipidemia, unspecified; F03.90 Unspecified dementia, unspecified severity, without behavioral disturbance, psychotic disturbance, mood disturbance, and anxiety; H54.7 Unspecified visual loss; I25.10 Atherosclerotic heart disease of native coronary artery without angina pectoris; D64.9 Anemia, unspecified; I48.0 Paroxysmal atrial fibrillation; K21.9 Gastro-esophageal reflux disease without esophagitis; N18.9 Chronic kidney disease, unspecified; Z82.49 Family history of ischemic heart disease and other diseases of the circulatory system; Z83.3 Family history of diabetes mellitus; I25.2 Old myocardial infarction; Z86.73 Personal history of transient ischemic attack (TIA), and cerebral infarction without residual deficits; Z88.0 Allergy status to penicillin; Z79.4 Long term (current) use of insulin; Z79.84 Long term (current) use of oral hypoglycemic drugs; Z79.82 Long term (current) use of aspirin; Z79.899 Other long term (current) drug therapy; Z68.25 Body mass index [BMI] 25.0-25.9, adult
CPT/HCPCS: 36415; 36600; 70551; 71045; 76770; 80048; 80053; 80305; 81003; 82140; 82375; 82607; 82746; 82805; 82962; 83036; 83540; 83550; 83605; 83735; 83880; 84155; 84165; 84439; 84443; 84481; 84484; 85014; 85018; 85025; 85610; 85730; 86038; 92610; 93005; 93970; 94640; 94660; 96365; 96366; 96375; 97162; 97166; 97530; 99291; C9113; G0482; J1815; J1940; J1956; J3475; J3490; J7040; J7620; A4315

== ENCOUNTER 2018-09-15 12:47 | Inpatient (IN) | payer MEDICARE, MEDICAID ==
[~2018-09-15] VITALS: Ht 175.3 cm; Wt 86.2 kg
[~2018-09-15 12:47] MED LIST changes: +BUDE0.25 IH; +CARV3.1242 PO; +DILT180C66 PO; -DILT180C69 PO; +DILT60TA35 PO; +FURO20TA4 PO; +INSLIS SUBCUT; +INSU100I19 SQ; +LEVVL SQ; +METF-414 PO; -METF500T6 PO; +PANT20TA3 PO; +POTA-9 PO
[2018-09-15 15:33] LABS: HEMATOCRIT. 34.6 % (42.0-52.0); MEAN CORPUSCULAR HEMOGLOBIN 23.8 pg (28.0-32.0); MEAN CORPUSCULAR VOLUME 74.3 fL (80.0-94.0); MEAN PLATELET VOLUME 9.1 fl (7.4-10.4); PLATELET 492 x1000/uL (130-400); RED BLOOD CELL COUNT 4.65 mill/uL (4.7-6.1); RED CELL DISTRIBUTION WIDTH 13.8 % (11.6-14.6)
[2018-09-15 15:40] LABS: CHLORIDE 100 mEq/L (98-107)
[2018-09-15 15:42] LABS: INR 1.2; PROTHROMBIN TIME 12.3 sec (9.1-11.1)
[2018-09-15 16:15] LABS: PLATELET ESTIMATE INCREASED
[2018-09-15] MEDS ORDERED: VANCOMYCIN 1 G PREMIX 200 ML IV SCH (16:15)
[2018-09-15] MEDS ORDERED: LEVOFLOXACIN 750MG PREMIX 150 ML IV ONE (16:15)
[2018-09-15] MEDS ORDERED: CLINDAMYCIN 600MG PREMIX 50 ML IV NR (16:30)
[2018-09-15] MEDS ORDERED: DIPHENHYDRAMINE 50MG/ML VIAL IV PRN (19:15)
[2018-09-15] MEDS ORDERED: ACETAMINOPHEN 325MG TABLET PO PRN (19:15)
[2018-09-15] MEDS ORDERED: MAGNESIUM/ALUMINUM HYDROXIDE/SIMETHICONE 30ML UDC PO PRN (19:15)
[2018-09-15] MEDS ORDERED: DOCUSATE SODIUM 100MG CAPSULE PO PRN (19:15)
[2018-09-15] MEDS ORDERED: DEXTROSE 50% WATER 50ML SYRINGE IV PRN ×2 (19:15)
[2018-09-15] MEDS ORDERED: HYDROCODONE/ACETAMINOPHEN 5/325MG TABLET PO PRN (19:15)
[2018-09-15] MEDS: INSULIN LISPRO 100 UNITS/ML SUBCUT SCH (20:42)
[2018-09-15 21:26] VITALS: BP 128/74
[2018-09-15] MEDS: BLOOD SUGAR DIAGNOSTIC STRIP TEST SCH (21:30)
[2018-09-15 22:00] VITALS: BP 113/74
[2018-09-15 23:43] VITALS: BP 128/74
[2018-09-16] VITALS (13 sets, daily range): BP systolic 102–169; BP diastolic 49–87
[2018-09-16 07:06] LABS: HEMATOCRIT. 31.3 % (42.0-52.0); MEAN CORPUSCULAR HEMOGLOBIN 23.5 pg (28.0-32.0); MEAN CORPUSCULAR VOLUME 73.6 fL (80.0-94.0); MEAN PLATELET VOLUME 9.3 fl (7.4-10.4); PLATELET 484 x1000/uL (130-400); RED BLOOD CELL COUNT 4.26 mill/uL (4.7-6.1); RED CELL DISTRIBUTION WIDTH 14.2 % (11.6-14.6)
[2018-09-16] MEDS: BLOOD SUGAR DIAGNOSTIC STRIP TEST SCH ×4 (07:47→21:03)
[2018-09-16 08:01] LABS: CHLORIDE 100 mEq/L (98-107)
[2018-09-16 08:08] LABS: PHOSPHORUS 2.8 mg/dL (2.5-4.9)
[2018-09-16] MEDS: INSULIN LISPRO 100 UNITS/ML SUBCUT SCH ×4 (08:49→21:11)
[2018-09-16] MEDS ORDERED: LEVOFLOXACIN 250MG TABLET PO SCH (11:00)
[2018-09-16 11:20] LABS: PLATELET ESTIMATE SLIGHTLY INCREASED
[2018-09-16] MEDS: DILTIAZEM HCL 60MG TABLET PO SCH ×2 (12:28→18:27)
[2018-09-16] MEDS: ASPIRIN 81MG TABLET PO SCH (13:58)
[2018-09-16] MEDS: DOCUSATE SODIUM 250MG CAPSULE PO SCH (13:58)
[2018-09-16] MEDS: FUROSEMIDE 20MG TABLET PO SCH (13:58)
[2018-09-16] MEDS: CLOPIDOGREL 75MG TABLET PO SCH (13:58)
[2018-09-16] MEDS: CARVEDILOL 3.125 MG TABLET PO SCH ×2 (13:59→20:45)
[2018-09-16] MEDS ORDERED: CLINDAMYCIN 600 MG in DEXTROSE 5% WATER 50 ML IV SCH (14:00)
[2018-09-16] MEDS ORDERED: ONDANSETRON HCL 4MG/2ML INJ IV PRN (14:45)
[2018-09-16] MEDS ORDERED: CEFTRIAXONE 1 G PREMIX 50 ML IV SCH (15:30)
[2018-09-16] MEDS ORDERED: IOHEXOL-350 100 ML BOTTLE ONE (16:19)
[2018-09-16] MEDS: CEFTRIAXONE 1,000 MG in DEXTROSE 5% WATER 50 ML IV SCH (18:45)
[2018-09-16] MEDS: ATORVASTATIN CALCIUM 40MG TABLET PO SCH (20:45)
[2018-09-16] MEDS: METRONIDAZOLE 500 MG PREMIX 100 ML IV SCH (20:45)
[2018-09-16] MEDS ORDERED: VANCOMYCIN 1250MG in DEXTROSE 5% WATER 250ML IV NR (21:30)
[2018-09-16] MEDS ORDERED: INSULIN GLARGINE UD 100 UNITS/ML SYR SUBCUT SCH ×2 (22:00)
[2018-09-17] VITALS (12 sets, daily range): BP systolic 145–177; BP diastolic 47–74
[2018-09-17] MEDS: DILTIAZEM HCL 60MG TABLET PO SCH ×2 (00:18→05:59)
[2018-09-17 06:29] LABS: HEMATOCRIT. 30.6 % (42.0-52.0); HEMOGLOBIN. 9.7 g/dL (14.0-18.0); MEAN CORPUSCULAR HEMOGLOBIN 23.2 pg (28.0-32.0); MEAN CORPUSCULAR VOLUME 73.6 fL (80.0-94.0); PLATELET 429 x1000/uL (130-400); RED BLOOD CELL COUNT 4.16 mill/uL (4.7-6.1); RED CELL DISTRIBUTION WIDTH 14.1 % (11.6-14.6)
[2018-09-17] MEDS: BLOOD SUGAR DIAGNOSTIC STRIP TEST SCH ×4 (07:37→20:20)
[2018-09-17] MEDS: PANTOPRAZOLE 40MG DR TABLET PO SCH (07:58)
[2018-09-17] MEDS: INSULIN LISPRO 100 UNITS/ML SUBCUT SCH ×4 (07:59→21:50)
[2018-09-17] MEDS: DOCUSATE SODIUM 250MG CAPSULE PO SCH (09:00)
[2018-09-17] MEDS: ASPIRIN 81MG TABLET PO SCH (09:24)
[2018-09-17] MEDS: CLOPIDOGREL 75MG TABLET PO SCH (09:24)
[2018-09-17] MEDS: FUROSEMIDE 20MG TABLET PO SCH (09:24)
[2018-09-17] MEDS: CARVEDILOL 3.125 MG TABLET PO SCH (09:24)
[2018-09-17] MEDS: CHOLECALCIFEROL (D3) 1000 UNIT TABLET PO SCH (09:24)
[2018-09-17] MEDS: METRONIDAZOLE 500 MG PREMIX 100 ML IV SCH ×2 (09:25→21:33)
[2018-09-17] MEDS: INSULIN GLARGINE UD 100 UNITS/ML SYR SUBCUT SCH (09:26)
[2018-09-17 10:21] LABS: PLATELET ESTIMATE INCREASED
[2018-09-17] MEDS ORDERED: VANCOMYCIN 1250MG in DEXTROSE 5% WATER 250ML IV SCH (13:00)
[2018-09-17] MEDS: HYDRALAZINE HCL 25MG TABLET PO SCH ×2 (13:06→21:32)
[2018-09-17] MEDS: SODIUM CHLORIDE 0.9% 1,000 ML IV SCH (17:46)
[2018-09-17] MEDS: CEFTRIAXONE 1,000 MG in DEXTROSE 5% WATER 50 ML IV SCH (17:46)
[2018-09-17] MEDS: AMLODIPINE 5MG TABLET PO SCH (20:19)
[2018-09-17] MEDS: ATORVASTATIN CALCIUM 40MG TABLET PO SCH (20:20)
[2018-09-17] MEDS: CARVEDILOL 6.25 MG TABLET PO SCH (20:20)
[2018-09-17] MEDS ORDERED: INSULIN GLARGINE UD 100 UNITS/ML SYR SUBCUT SCH (22:00)
[2018-09-18] VITALS (12 sets, daily range): BP systolic 134–177; BP diastolic 54–82
[2018-09-18] MEDS: HYDRALAZINE HCL 25MG TABLET PO SCH (06:17)
[2018-09-18] MEDS: BLOOD SUGAR DIAGNOSTIC STRIP TEST SCH ×4 (06:18→20:06)
[2018-09-18] MEDS: BUDESONIDE 0.5MG/2ML NEB HHN SCH ×2 (07:24→20:13)
[2018-09-18] MEDS: IPRATROPIUM/ALBUTEROL 0.5-3(2.5)MG/3ML NEB INH PRN ×3 (07:24→20:13)
[2018-09-18] MEDS: INSULIN LISPRO 100 UNITS/ML SUBCUT SCH ×4 (07:33→21:39)
[2018-09-18 08:32] LABS: BASOPHILS % 0.5 % (0.0-2.0); EOSINOPHILS % 3.8 % (0.0-5.0); HEMATOCRIT. 31.1 % (42.0-52.0); LYMPHOCYTES % 8.2 % (20.0-50.0); MEAN CORPUSCULAR HEMOGLOBIN 23.5 pg (28.0-32.0); MEAN CORPUSCULAR VOLUME 73.2 fL (80.0-94.0); MONOCYTES % 7.4 % (2.0-8.0); NEUTROPHILS % 80.1 % (40.0-76.0); PLATELET 451 x1000/uL (130-400); RED BLOOD CELL COUNT 4.25 mill/uL (4.7-6.1); RED CELL DISTRIBUTION WIDTH 13.8 % (11.6-14.6)
[2018-09-18] MEDS: CARVEDILOL 6.25 MG TABLET PO SCH ×2 (09:04→20:06)
[2018-09-18] MEDS: ASPIRIN 81MG TABLET PO SCH (09:04)
[2018-09-18] MEDS: PANTOPRAZOLE 40MG DR TABLET PO SCH (09:04)
[2018-09-18] MEDS: FUROSEMIDE 20MG TABLET PO SCH (09:05)
[2018-09-18] MEDS: AMLODIPINE 5MG TABLET PO SCH ×2 (09:05→20:05)
[2018-09-18] MEDS: CLOPIDOGREL 75MG TABLET PO SCH (09:05)
[2018-09-18] MEDS: CHOLECALCIFEROL (D3) 1000 UNIT TABLET PO SCH (09:05)
[2018-09-18] MEDS: DOCUSATE SODIUM 250MG CAPSULE PO SCH (09:05)
[2018-09-18] MEDS: METRONIDAZOLE 500 MG PREMIX 100 ML IV SCH ×2 (09:13→20:05)
[2018-09-18] MEDS: INSULIN GLARGINE UD 100 UNITS/ML SYR SUBCUT SCH ×2 (10:00→21:55)
[2018-09-18 10:23] LABS: CREATINE KINASE 217 IU/L (39-308)
[2018-09-18] MEDS: HYDRALAZINE HCL 50MG TABLET PO SCH ×2 (13:44→21:26)
[2018-09-18] MEDS: CLONIDINE 0.1MG TABLET PO PRN (14:56)
[2018-09-18] MEDS: CEFTRIAXONE 1,000 MG in DEXTROSE 5% WATER 50 ML IV SCH (17:58)
[2018-09-18] MEDS: SODIUM CHLORIDE 0.9% 1,000 ML IV SCH (19:38)
[2018-09-18] MEDS: ATORVASTATIN CALCIUM 40MG TABLET PO SCH (20:06)
[2018-09-19] VITALS (10 sets, daily range): BP systolic 148–168; BP diastolic 58–93
[2018-09-19] MEDS: HYDRALAZINE HCL 50MG TABLET PO SCH ×3 (05:21→21:11)
[2018-09-19] MEDS: CLONIDINE 0.1MG TABLET PO PRN (06:55)
[2018-09-19 06:56] LABS: HEMATOCRIT. 32.4 % (42.0-52.0); HEMOGLOBIN. 10.2 g/dL (14.0-18.0); MEAN CORPUSCULAR HEMOGLOBIN 23.6 pg (28.0-32.0); MEAN CORPUSCULAR VOLUME 74.5 fL (80.0-94.0); PLATELET 408 x1000/uL (130-400); RED BLOOD CELL COUNT 4.34 mill/uL (4.7-6.1); RED CELL DISTRIBUTION WIDTH 14.2 % (11.6-14.6)
[2018-09-19] MEDS: BLOOD SUGAR DIAGNOSTIC STRIP TEST SCH ×4 (07:30→21:32)
[2018-09-19] MEDS: BUDESONIDE 0.5MG/2ML NEB HHN SCH ×2 (07:56→20:31)
[2018-09-19] MEDS: IPRATROPIUM/ALBUTEROL 0.5-3(2.5)MG/3ML NEB INH PRN (07:56)
[2018-09-19] MEDS ORDERED: FAMOTIDINE 20MG TABLET PO SCH (09:00)
[2018-09-19] MEDS: DOCUSATE SODIUM 250MG CAPSULE PO SCH (09:00)
[2018-09-19] MEDS: CHOLECALCIFEROL (D3) 1000 UNIT TABLET PO SCH (09:05)
[2018-09-19] MEDS: METRONIDAZOLE 500 MG PREMIX 100 ML IV SCH ×2 (09:05→21:05)
[2018-09-19] MEDS: FUROSEMIDE 20MG TABLET PO SCH (09:06)
[2018-09-19] MEDS: AMLODIPINE 5MG TABLET PO SCH ×2 (09:07→21:10)
[2018-09-19] MEDS: CARVEDILOL 6.25 MG TABLET PO SCH ×2 (09:07→21:11)
[2018-09-19] MEDS: ASPIRIN 81MG TABLET PO SCH (09:08)
[2018-09-19] MEDS: INSULIN LISPRO 100 UNITS/ML SUBCUT SCH ×4 (09:11→21:31)
[2018-09-19] MEDS: INSULIN GLARGINE UD 100 UNITS/ML SYR SUBCUT SCH ×2 (09:11→21:32)
[2018-09-19] MEDS: CLOPIDOGREL 75MG TABLET PO SCH (09:28)
[2018-09-19 17:40] LABS: CLARITY URINE CLOUDY (CLEAR); COLOR URINE YELLOW (YELLOW); KETONES URINE NEGATIVE (NEGATIVE); LEUKOCYTE ESTERASE URINE NEGATIVE (NEGATIVE); NITRITE URINE NEGATIVE (NEGATIVE); OCCULT BLOOD URINE NEGATIVE (NEGATIVE); PROTEIN URINE 1+ (NEGATIVE); SPECIFIC GRAVITY URINE 1.015 (1.005-1.030); UROBILINOGEN URINE 0.2 E.U./dL (0.2-1.0)
[2018-09-19] MEDS: SODIUM CHLORIDE 0.9% 1,000 ML IV SCH (17:45)
[2018-09-19] MEDS: CEFTRIAXONE 1,000 MG in DEXTROSE 5% WATER 50 ML IV SCH (18:21)
[2018-09-19 19:31] LABS: PLATELET ESTIMATE SLIGHTLY INCREASED
[2018-09-19] MEDS: ATORVASTATIN CALCIUM 40MG TABLET PO SCH (21:10)
== END 2018-09-19 21:54 | DRG 853 ==
LOC: ER 12:47 → 5EST 16:37 → EDBEDREQ 16:40 → EDBEDREQSVC 19:27 → ENRESERV 20:02
PROVIDERS: ADMIT Family Medicine Adult Medicine; ATTEND Family Medicine Adult Medicine
PROC: 05H633Z Insertion of Infusion Device into Left Subclavian Vein, Percutaneous Approach (ICD-10-PCS; 2018-09-16)
PROC: B547ZZA Ultrasonography of Left Subclavian Vein, Guidance (ICD-10-PCS; 2018-09-16)
PROC: 0JBR0ZZ Excision of Left Foot Subcutaneous Tissue and Fascia, Open Approach (ICD-10-PCS; principal; 2018-09-17)
PROC: 0QBN0ZZ Excision of Right Metatarsal, Open Approach (ICD-10-PCS; 2018-09-17)
DX: A41.9 Sepsis, unspecified organism (principal); E43 Unspecified severe protein-calorie malnutrition; I42.9 Cardiomyopathy, unspecified; I13.0 Hypertensive heart and chronic kidney disease with heart failure and stage 1 through stage 4 chronic kidney disease, or unspecified chronic kidney disease; N17.9 Acute kidney failure, unspecified; M86.8X7 Other osteomyelitis, ankle and foot; L02.611 Cutaneous abscess of right foot; E11.621 Type 2 diabetes mellitus with foot ulcer; D50.9 Iron deficiency anemia, unspecified; E11.22 Type 2 diabetes mellitus with diabetic chronic kidney disease; E78.00 Pure hypercholesterolemia, unspecified; I48.0 Paroxysmal atrial fibrillation; K21.9 Gastro-esophageal reflux disease without esophagitis; E11.51 Type 2 diabetes mellitus with diabetic peripheral angiopathy without gangrene; E11.69 Type 2 diabetes mellitus with other specified complication; N18.9 Chronic kidney disease, unspecified; E11.65 Type 2 diabetes mellitus with hyperglycemia; E78.5 Hyperlipidemia, unspecified; I70.202 Unspecified atherosclerosis of native arteries of extremities, left leg; I70.201 Unspecified atherosclerosis of native arteries of extremities, right leg; F03.90 Unspecified dementia, unspecified severity, without behavioral disturbance, psychotic disturbance, mood disturbance, and anxiety; I25.10 Atherosclerotic heart disease of native coronary artery without angina pectoris; I25.2 Old myocardial infarction; I50.9 Heart failure, unspecified; L89.629 Pressure ulcer of left heel, unspecified stage; L89.529 Pressure ulcer of left ankle, unspecified stage; L89.519 Pressure ulcer of right ankle, unspecified stage; L97.519 Non-pressure chronic ulcer of other part of right foot with unspecified severity; L97.529 Non-pressure chronic ulcer of other part of left foot with unspecified severity; R62.7 Adult failure to thrive; Z74.01 Bed confinement status; Z86.73 Personal history of transient ischemic attack (TIA), and cerebral infarction without residual deficits; Z87.891 Personal history of nicotine dependence; Z88.0 Allergy status to penicillin; Z79.4 Long term (current) use of insulin; Z79.899 Other long term (current) drug therapy; Z68.28 Body mass index [BMI] 28.0-28.9, adult
CPT/HCPCS: 36415; 36569; 71045; 72191; 73630; 73706; 76770; 76937; 80048; 82550; 82962; 83036; 83605; 83735; 84100; 84484; 85651; 86140; 87070; 87075; 87076; 87077; 87186; 93005; 93306; 93923; 93970; 94640; 96365; 96367; 99285; C1725; J0696; J1815; J1956; J2405; J3370; J3490; J7030; J7050; J7060; J7620; J7626; Q9967